=== PATIENT | female | born 1950 | race Caucasian/White ===

== ENCOUNTER 2016-06-21 01:46 | Inpatient (IN) | payer OTHER ==
[~2016-06-21] VITALS: Ht 157.5 cm; Wt 115.7 kg
[~2016-06-21 01:46] MED LIST: ASPIRIN EC81 M1 PO; DAILY MULTIPLE1 EACH PO; GLUCOPHAGE XR500 M1 PO; PRINIVIL20 M1 PO; ZOCOR20 M1 PO
[2016-06-21] MEDS ORDERED: GLUCOSAMINE CH1 EAC3 PO (10:30)
--- NOTE | 2016-06-21 12:36 | Admission Core Measures ---
Admission Meds I reviewed the following Meds: Current Medications Sig/Mel Start time Last Medication Dose Stop Time Status Admin Ropivacaine 500 ML ONCE ONE 06/21 1145 AC (NAROPIN) 06/23 1344 ON-Q Ball 1 BAG Vancomycin HCl 1,500 MG PRE 06/21 0000 NR Sodium Chloride 250 ML 06/21 2359 (Normal Saline 0.9%) Acute Coronary Syndrome Inclusion Criteria ACS Diagnosis No Inpatient Core Measures LDL Reminder: If No, please order W/I first 24hr of stay Congestive Heart Failure Inclusion Criteria CHF Diagnosis No Cerebrovascular accident Inclusion Criteria CVA/TIA Diagnosis No Inpatient Core Measures Bedside Swallow Eval Reminder: If BSE failed, place ST order Antithrombotic Reminder: Order Antithrombotic Medication by end of day 2 Antithrombotic Reminder: Document Reason Antithrombotic Not ordered by end of day 2 AFIB/Flutter Reminder: If Present, add to problem list AFIB/Flutter Reminder: Order Anticoag Medication for pts with AFIB/Flutter Atherosclerosis Reminder: If Present, add to problem list LDL Reminder: If No, please order W/I first 24hr of stay PT Order Reminder: If No, please order Venous thromboembolism Inpatient Core Measures VTE Risk Factors: Age > 40, Obesity, Surgery VTE Prophylaxis Ordered Inpt Mech & Pharm No Mech VTE prophylaxis d/t No contraindications No VTE Pharm Prophylaxis d/t No contraindications Inclusion Criteria - Per Current guidelines, there needs to be overlap - treatment for the first 5 days of Warfarin therapy. - Parenteral Anticoagulation (IV or SC) needs to be - given along with Warfarin therapy. VTE Diagnosis No VTE Type NONE VTE Confirmed by (Test) NONE Problem List As ranked by this Provider includes Assessment & Plan 1. Status post total knee replacement, right HOME MEDS Home Med List Aspirin (Ecotrin*) 81 MG TABLET.DR 1 TAB PO DAILY HEART/BLOOD (Reported) Glucosa Cline 2KCL/Chondroitin Cline (Glucosamine Chondroitin Caplet) 500 MG-400 MG TABLET 1 TAB PO DAILY SUPP (Reported) Lisinopril (Prinivil) 20 MG TABLET 1 TAB PO DAILY BP (Reported) Metformin HCl (Glucophage XR) 500 MG TAB.ER.24H 1 TAB PO DAILY DM (Reported) Multivitamin (Daily Multiple Vitamin) 1 EACH TABLET 1 TAB PO DAILY SUPPLEMENT (Reported) Simvastatin (Zocor*) 20 MG TABLET 1 TAB PO DAILY CHOLESTEROL (Reported)
--- NOTE | 2016-06-21 12:38 | Discharge Summary ---
Visit Information Visit Dates Admission Date: 06/21/16 Discharge Date: 06/23/16 Hospital Course Course Attending Physician: KALEY BROCK MD Primary Care Physician: APRIL GUAN APRN [facility] Course: Patient admitted to floor following procedure below. Patient ambulated with PT upon arrival to the floor. Patient continued to progress well. Upon discharge patient is afebrile, tolerating diet, pain controlled, ambulating well with rolling walker and PT. Complications: None Allergies: Coded Allergies: Penicillins (Severe, ANAPHYLAXIS 06/11/16) tetracycline (Intermediate, RASH 06/11/16) Significant Procedures: 06/21/2016 right total knee arthroplasty Disposition Summary Disposition Principal Diagnosis: Right knee primary osteoarthritis, degenerative joint disease Additional Diagnosis: None Discharge Disposition: home health services Discharge Instructions General Discharge Information Code Status: Full Code Patient's Diet: Resume normal diet Patient's Activity: Weightbearing as tolerated Follow-Up Instructions/Appts: Call office to schedule/confirm appointment Medications at Discharge Discharge Medications: Stop taking the following medications: Aspirin (Ecotrin*) 81 MG TABLET. ORAL DAILY Continue taking these medications: Metformin HCl (Glucophage XR) 500 MG TAB.ER.24H 1 Tablet ORAL DAILY Instructions: with food Comments: REG OR ER NOT LISTED - DOCUMENTED PER CMR DURING PRE-SX INTERVIEW Lisinopril (Prinivil) 20 MG TABLET 1 Tablet ORAL DAILY Comments: Last Taken: 06/23/16 Time: 0800 Simvastatin (Zocor*) 20 MG TABLET 1 Tablet ORAL DAILY Comments: DOCUMENTED PER CMR DURING PRE-SX INTERVIEW Multivitamin (Daily Multiple Vitamin) 1 EACH TABLET 1 Tablet ORAL DAILY Comments: DOCUMENTED PER CMR DURING PRE-SX INTERVIEW Glucosa Cline 2KCL/Chondroitin Cline (Glucosamine Chondroitin Caplet) 500 MG-400 MG TABLET 1 Tablet ORAL DAILY Start taking the following new medications: Aspirin (Ecotrin*) 325 MG TABLET. 1 Tablet ORAL TWICE DAILY Qty = 60 No Refills Docusate Sodium (Colace) 100 MG CAPSULE 1 Capsule ORAL TWICE DAILY as needed for CONSTIPATION Qty = 30 No Refills Polyethylene Glycol 3350 (Miralax) 17 GRAM POWD.PACK 1 Packet ORAL DAILY as needed for CONSTIPATION Qty = 14 No Refills Instructions: dissolve in water Comments: Last Taken: 06/23/16 Time: 0800 Morphine Sulfate (Morphine Sulfate ER) 15 MG TABLET.ER 1 Tablet ORAL TWICE DAILY Qty = 6 No Refills Hydromorphone HCl (Dilaudid) 2 MG TABLET 1-2 Tablet ORAL Q4-6P as needed for PAIN Qty = 36 No Refills Copies To: APRIL GUAN APRN
--- NOTE | 2016-06-21 12:49 | Patient Discharge Instructions ---
Discharge Instructions General Discharge Information You were seen/treated for: Right knee primary osteoarthritis, DJD You had these procedures: 06/21/2016 right total knee arthroplasty Watch for these problems: Redness, swelling, fever, signs of infection. Uncontrolled pain, Excessive bleeding. Decreased range of motion or unable to bear weight. Chest pain, shortness of breath. Call Surgeon to remove: [place] (14 DAYS) Do not soak the wound: Yes No bath, but you may shower: Yes Other wound care: Daily dry dressing changes or as needed Diet Continue normal diet: Yes Activity Activity Self Limited: No Activity Limited to: Weight bear as tolerated Additional ACTIVITY Info: Daily physical therapy Acute Coronary Syndrome Inclusion Criteria At DC or during hospital stay patient has or had the following: ACS DIAGNOSIS No Discharge Core Measures Meds if any: Prescribed or Continued at Discharge Meds if any: NOT Prescribed or Continued at Discharge Congestive Heart Failure Inclusion Criteria At DC or during hospital stay patient has or had the following: CHF DIAGNOSIS No Discharge Core Measures Meds if any: Prescribed or Continued at Discharge Meds if any: NOT Prescribed or Continued at Discharge Cerebrovascular accident Inclusion Criteria At DC or during hospital stay patient has or had the following: CVA/TIA Diagnosis No Discharge Core Measures Meds if any: Prescribed or Continued at Discharge Meds if any: NOT Prescribed or Continued at Discharge Venous thromboembolism Inclusion Criteria VTE Diagnosis No VTE Type NONE VTE Confirmed by (Test) NONE Discharge Core Measures - Per Current guidelines, there needs to be overlap - treatment for the first 5 days of Warfarin therapy. - If discharged on Warfarin prior to 5 days of - overlap therapy, the patient will need to be - assessed for post discharge needs including - *Post discharge parental anticoagulation - *Warfarin and/or parental anticoagulation education - *Follow up date to check INR post discharge At least 5 days overlap therapy as Inpatient No Meds if any: Prescribed or Continued at Discharge Note: Overlap Therapy is Warfarin and Anticoagulant Meds if any: NOT Prescribed or Continued at Discharge
[2016-06-21] MEDS ORDERED: DILAUDID2 M1 PO (12:51)
[2016-06-21] MEDS ORDERED: COLACE100 M1 PO (12:51)
[2016-06-21] MEDS ORDERED: ASPIRIN EC325 M2 PO ×2 (12:51→12:59)
[2016-06-21] MEDS ORDERED: MIRALAX17 G1 PO (12:51)
[2016-06-21] MEDS ORDERED: MORPHINE SULFAT15 M3 PO (12:51)
--- NOTE | 2016-06-21 16:34 | Operative Report ---
Operative/Inv Procedure Report Surgery Date: 06/21/16 Name of Procedure: Right total knee replacement Pre-Operative Diagnosis: Primary right knee DJD Post-Operative Diagnosis: Same Estimated Blood Loss: 50ml to 100ml Surgeon/Chain Maker Loom Control: DELMY NELSON,KALEY Albert Anesthesia: block Operative/Procedure Note Note: Description of Procedure: The patient was taken to the operating room and positively identified. After induction of spinal anesthesia and administration of appropriate pre-operative antibiotics, the patient was positioned supine on the operating room table and all bony prominences were well padded. A well-padded pneumatic tourniquet was placed on the right upper thigh. After performing a surgical timeout, the right lower extremity was prepped and draped in the usual sterile fashion. After exsanguination with Esmarch the tourniquet was inflated to 250mm of mercury. A standard medial parapatellar approach was made to the knee. This was carried down through skin and subcutaneous tissue to the level of the fascia. Meticulous hemostasis was maintained with Bovie electrocautery. The extensor mechanism and patellar retinaculum were opened sharply and the patella was everted. The infrapatellar fat was resected in order to improve exposure. Osteophytes were trimmed from the patella and femoral condyles and the patella was re-everted and tucked laterally. A medial release was performed and the cruciate ligaments were resected. The tibia was then subluxed anteriorly. Utilizing the appropriate extra-medullary guide, the proximal tibia was trimmed perpendicular to the long axis of the tibial shaft. Attention was then turned to the femur. After opening the medullary canal, the distal femoral cut was made in 6 degrees of valgus utilizing the appropriate intra-medullary guide. The extension gap was checked and found to be appropriate. The femur was then sized and the remainder of the femoral cuts were made with a size 2 4-in-1 femoral cutting guide. The flexion gap was checked and found to be symmetric and appropriate. The knee was then trialed with a size 2 CR femoral component, a size 2 tibial component and a size 11 mm CS polyethylene insert. The patella was trimmed to accept an A 32 patella. This yielded excellent range of motion, stability and patellar tracking. All trial components were removed and the knee was copiously irrigated with sterile saline. All components were cemented into place with [place] Simplex cement. All the components were of the [employer] Triathlon knee system of the above stated sizes. The knee was again irrigated after cementation. The extensor mechanism and patellar retinaculum were repaired using interrupted #1 vicryl suture. The skin was re-approximated with 2-0 vicryl and closed with maninder. A sterile dressing was applied, the tourniquet was deflated, the patient was awakened and taken to the recovery room in satisfactory condition.
--- NOTE | 2016-06-21 17:04 | PN- Orthopedic ---
Subjective Subjective: Post Op Note s/p right TKA Patient states her pain is 5/10 at the moment, beginning to increase in severity. On Q pump placement was unsuccessful. Denies Numbness/tingling in BLE. Tolerating sips of water, no n/v. Has not been OOB with PT yet. Denies CP/SOB. Objective Vital Signs and I&Os BP: 138/87 HR: 68 O2: 97% on RA RR: 18 Physical Exam: Gen: NAD, comfortable, A&Ox3 Chest: NRD, breathing comfortably on RA. RRR. Ext: Right knee dressing c/d/i. RLE compartments soft. No calve swelling/TTP. N/V intact BLE. Current Medications: Current Medications Sig/Mel Start time Last Medication Dose Route Stop Time Status Admin Acetaminophen 650 MG ONCE ONE 06/21 829 DC PO 06/21 08 Acetaminophen 975 MG ONCE ONE 06/21 829 DC PO 06/21 0831 Atorvastatin Calcium 10 MG 1700 06/21 1700 AC PO Lisinopril 20 MG DAILY 06/22 1000 AC PO Oxycodone HCl 10 MG .STK-MED ONE 06/21 1052 DC PO 06/21 1053 Oxycodone HCl 10 MG ONCE ONE 06/21 0830 DC PO 06/21 0831 Ropivacaine 500 ML ONCE ONE 06/21 1145 CAN ON-Q Ball 1 BAG INJ 06/23 1344 Vancomycin HCl 1,500 MG PRE 06/21 0000 NR Sodium Chloride 250 ML IV 06/21 2359 Assessment/Plan Assessment/Plan 65yo F POD#0 s/p right TKA. AVSS, patient stable. - pain control - PRN zofran - ASA 325mg PO BID - ALPS - TEDS - Bowel regimen - I/O's - DC IVF when tolerating diet - OOB with PT, WBAT - a.m. CBC, BEP Core Measures/Miscellaneous Venous Thromboembolism VTE Risk Factors: Age > 40, Obesity, Surgery VTE Contraindications: No Contraindications VTE Prophylaxis Ordered Inpt: Mech & Pharm VTE Diagnosis: No VTE Type: NONE VTE Confirmed by (Test): NONE Beta Carmelo Is Beta Carmelo a Home Med? No Antibiotics Is Patient on Antibiotics? Yes If Yes: prophylaxis
[2016-06-21 19:07] VITALS: BP 136/84
[2016-06-21 21:06] VITALS: BP 140/92
[2016-06-22 00:17] VITALS: BP 132/72
[2016-06-22 00:56] VITALS: BP 128/72
[2016-06-22 05:05] VITALS: BP 122/64
[2016-06-22 08:24] VITALS: BP 120/76
[2016-06-22 08:53] LABS: ABSOLUTE BASOPHIL COUNT 0 /CUMM (0.0-0.2); ABSOLUTE EOSINOPHIL COUNT 0.1 /CUMM (0.0-0.7); ABSOLUTE GRANULOCYTE CT 8.3 /CUMM (1.4-6.5); ABSOLUTE LYMPH COUNT 0.9 /CUMM (1.2-3.4); ABSOLUTE MONOCYTE COUNT 0.8 /CUMM (0.10-0.60); BASOPHIL % 0.2 % (0.0-2.0); EOSINOPHIL % 0.5 % (0-5); HEMATOCRIT 34.9 % (37-47); MEAN CORPUSCULAR HGB 28.7 PG (27.0-31.0); MEAN CORPUSCULAR HGB CONC 33.5 G/DL (33.0-37.0); MEAN CORPUSCULAR VOLUME 85.7 FL (81.0-99.0); MEAN PLATELET VOLUME 7.4 FL (7.4-10.4); PLATELET COUNT 272 /CUMM (130-400); RBC DISTRIBUTION WIDTH 14.3 % (11.5-14.5); RED BLOOD CELL CT 4.07 /CUMM (4.20-5.40)
--- NOTE | 2016-06-22 10:52 | PN- Orthopedic ---
Subjective Subjective: pod#1 s/p right tka ambulating with pt no major complaints deneis cp, sob, no n+v with diet tolerating diet no bm Objective Vital Signs and I&Os Vital Signs Date Time Temp Pulse Resp B/P Pulse O2 O2 Flow FiO2 Ox Delivery Rate 06/22 08 99.3 89 16 120/76 96 Room Air 06/22 0505 98.6 92 20 122/64 95 Room Air 06/22 0056 98.2 96 20 128/72 94 Room Air 06/22 0017 97.8 92 20 132/72 93 Room Air 06/21 2106 98.0 90 20 140/92 93 06/21 1907 98.1 98 18 136/84 93 Room Air Intake & Output 06/22 1600 06/22 0800 06/22 0000 06/21 1600 06/21 0806/21 0000 Intake Total 840 490 Output Total 200 450 Balance 640 40 Intake, IV 600 250 Intake, Oral 240 240 Output, Urine 200 450 Patient 255 lb Weight Physical Exam: cv: rrr lungs: clear abd: +bs ext: drsg dry distal cms intact no calf tenderness bilat Assessment/Plan Assessment/Plan ortho stable plan oob with pt/stairs titrate pain meds asa for dvt prophylaxis home d/c planning Core Measures/Miscellaneous Venous Thromboembolism VTE Risk Factors: Age > 40, Obesity, Surgery VTE Contraindications: No Contraindications VTE Prophylaxis Ordered Inpt: Mech & Pharm VTE Diagnosis: No VTE Type: NONE VTE Confirmed by (Test): NONE Beta Carmelo Is Beta Carmelo a Home Med? No Antibiotics Is Patient on Antibiotics? Yes If Yes: prophylaxis
[2016-06-22 16:26] VITALS: BP 128/74
[2016-06-22 23:57] VITALS: BP 132/68
--- NOTE | 2016-06-23 07:44 | PN- Orthopedic ---
Subjective Subjective: POD#2 S/P RIGHT TKA FEELING MUCH BETTER TODAY AMBULATING WELL WITH PT DENIES CP, SOB, NO N+V WITH DIET Objective Vital Signs and I&Os Vital Signs Date Time Temp Pulse Resp B/P Pulse O2 O2 Flow FiO2 Ox Delivery Rate 06/22 2357 99.1 94 18 132/68 93 Room Air 06/22 1626 99.3 95 18 128/74 92 Room Air 06/22 1157 136/72 06/22 0824 99.3 89 16 120/76 96 Room Air Intake & Output 06/23 0800 06/23 0000 06/22 1600 06/22 0800 06/22 0000 06/21 1600 Intake Total 260 640 480 840 490 Output Total 350 200 450 Balance -90 640 480 640 40 Intake, IV 10 600 250 Intake, Oral 250 640 480 240 240 Output, Urine 350 200 450 Patient 255 lb Weight Physical Exam: CV: RRR LUNGS: CLEAR ABD: +BS EXT: DRSG CHANGED, WOUND C/D/I DISTAL CMS INTACT NO CALF TENDERNESS BILAT Assessment/Plan Assessment/Plan ORTHO STABLE PLAN CONT OOB WITH PT/STAIRS ASA FOR DVT PROPHYLAXIS PLAN FOR HOME DC LATER TODAY Core Measures/Miscellaneous Venous Thromboembolism VTE Risk Factors: Age > 40, Obesity, Surgery VTE Contraindications: No Contraindications VTE Prophylaxis Ordered Inpt: Mech & Pharm VTE Diagnosis: No VTE Type: NONE VTE Confirmed by (Test): NONE Beta Carmelo Is Beta Carmelo a Home Med? No Antibiotics Is Patient on Antibiotics? Yes If Yes: prophylaxis
[2016-06-23 08:01] VITALS: BP 140/84
== END 2016-06-23 10:30 | disposition home health service (06) | DRG 470 ==
LOC: SDA 01:46 → 2NB 18:38
PROVIDERS: Physician Assistant Surgical; ADMIT Orthopaedic Surgery
PROC: 0SRC0J9 Replacement of Right Knee Joint with Synthetic Substitute, Cemented, Open Approach (ICD-10-PCS; principal; 2016-06-21)
DX: M17.11 Unilateral primary osteoarthritis, right knee (principal); Z68.42 Body mass index [BMI] 45.0-49.9, adult; I10 Essential (primary) hypertension; E66.9 Obesity, unspecified; E11.9 Type 2 diabetes mellitus without complications; E78.5 Hyperlipidemia, unspecified
CPT/HCPCS: 2NBSP; 36415; 82436; 88305; 97110-GO; 97116-GO; 97161-GP; 97530-GO; C1713; J0131; J1170; J1885; J2405; J2795; J3370; J7040